=== PATIENT | male | born 1990 | race Two or more races ===

== ENCOUNTER 2018-05-02 09:27 | Emergency (ER) | payer OTHER ==
[~2018-05-02] VITALS: Ht 185.4 cm; Wt 86.2 kg
[2018-05-02] MEDS ORDERED: Lidocaine 1% 10mg/ml/Epi 0.005mg/ml 30ml vial INJ ONE ×2 (09:48→10:00)
[2018-05-02 09:57] VITALS: BP 119/77
[2018-05-02] MEDS ORDERED: Bacitracin Oint UD TOPIC ONE ×2 (10:26→10:30)
[2018-05-02] MEDS ORDERED: Cephalexin 500mg cap ORAL ONE (10:30)
--- NOTE | 2018-05-02 10:33 | Emergency Room Report ---
History of Present Illness General Chief Complaint: Medical Clearance Source: EMS Present Illness HPI Patient is a 27-year-old male who presented by EMS with [employer] after the left hand injury. Patient had recently been arrested. He stated he had a cut his hand on some razor wire from a fence. He reports being right-hand dominant. He denies any numbness. He reports having tetanus vaccine approximate 7 years ago. The patient denies any numbness or foreign body sensation. Allergies: Coded Allergies: No Known Allergies (Unverified , 05/02/18) Patient History Reviewed Nursing Documentation: PMH: Agreed; PSxH: Agreed Nursing Documentation-[facility] Past Medical History: No History, Except For Review of Systems All Other Systems: negative except mentioned in HPI Physical Exam Vital Signs Date Time Temp Pulse Resp B/P (MAP) Pulse Ox O2 Delivery O2 Flow Rate FiO2 05/02/18 09:28 97.6 78 18 119/77 98 Room Air 97.5 General Appearance: well appearing, no apparent distress, alert, GCS 15 Head: normocephalic, atraumatic ENT: hearing grossly normal, normal voice Neck: full range of motion, supple Respiratory: no respiratory distress, speaking full sentences Musculoskeletal: other - left hand with normal opposition, movements of thumb Neurologic: normal inspection, alert, oriented x3, responsive, normal gait Psychiatric: mood/affect normal Skin: no rash Procedures Laceration/Wound Repair Laceration/Wound Repair : Consent: Emergent Wound Location: upper extremity Wound's Depth, Shape: into muscle, linear Betadine Prep?: Yes Anesthesia: Lidocaine w/ Epi Volume Anesthetic (ccs): 4 Wound Debrided: minimal Suture Size/Type: 5:0 Number of Sutures: 10 Layer Closure?: Yes Deep Layer Suture Size/Type: 5:0, 4:0 Number Deep Layer Sutures: 4 Patient Tolerated: Well Complications: None Medical Decision Making ER Course Patient presented for laceration. Differential diagnoses included foreign body , nerve injury, arterial injury among others. The patient's hand wound was sutured. The patient was medically cleared. Patient be discharged to [employer] custody. The patient is advised suture removal in 10-14 days. Last Vital Signs Date Time Temp Pulse Resp B/P (MAP) Pulse Ox O2 Delivery O2 Flow Rate FiO2 05/02/18 09:57 97.5 88 18 119/77 98 Room Air 97.5 Status: improved Disposition: D/C TO [facility] Condition: Stable Referrals: [facility] (PCP) Danny Law MD May 02, 2018 10:33
[2018-05-02] MEDS ORDERED: IBUPROFEN600 MG ORAL (10:36)
[2018-05-02] MEDS ORDERED: CEPHALEXIN500 MG ORAL (10:36)
[2018-05-02 10:46] VITALS: BP 124/82
== END 2018-05-02 10:46 ==
LOC: EDBD 09:27 → EMR 09:56
DX: S61.412A Laceration without foreign body of left hand, initial encounter (principal); W45.8XXA Other foreign body or object entering through skin, initial encounter; Y92.9 Unspecified place or not applicable
CPT/HCPCS: 99283

== ENCOUNTER 2018-05-02 13:04 | Emergency (ER) | payer OTHER ==
[~2018-05-02] VITALS: Ht 177.8 cm; Wt 77.1 kg
[~2018-05-02 13:04] MED LIST: CEPHALEXIN500 MG ORAL; IBUPROFEN600 MG ORAL
[2018-05-02] MEDS ORDERED: Tetanus/Diptheria/Pertussis Vaccine 0.5ml Syr IM ONE ×2 (13:30→13:39)
[2018-05-02 13:43] VITALS: BP 118/70
--- NOTE | 2018-05-02 14:39 | Emergency Room Report ---
History of Present Illness General Chief Complaint: Medical Clearance Source: Patient Present Illness HPI Patient is a 27-year-old male brought in by [employer] for medical clearance. Patient had been recently seen by me and had previous suture. Patient was noted to have some evidence of the laceration that was not noticed on previous exam. The patient was sent for further evaluation and possible suture. Patient was also not noted to be given tetanus vaccine presented and they requested tetanus be given. Allergies: Coded Allergies: No Known Allergies (Unverified , 05/02/18) Patient History Past Medical History: see triage record Reviewed Nursing Documentation: PMH: Agreed; PSxH: Agreed Nursing Documentation-PM Past Medical History: No Stated History Review of Systems All Other Systems: negative except mentioned in HPI Physical Exam Vital Signs Date Time Temp Pulse Resp B/P (MAP) Pulse Ox O2 Delivery O2 Flow Rate FiO2 05/02/18 13:11 97.3 78 20 120/78 98 Room Air 97.3 General Appearance: well appearing, no apparent distress, alert, GCS 15 Head: normocephalic, atraumatic ENT: hearing grossly normal, normal voice Neck: full range of motion, supple Respiratory: no respiratory distress, speaking full sentences Musculoskeletal: no calf tenderness Neurologic: normal gait Psychiatric: mood/affect normal Skin: no rash, laceration - 1 cm finger Procedures Laceration/Wound Repair Laceration/Wound Repair : Consent: Verbal Wound Location: upper extremity Wound's Depth, Shape: superficial Wound Length (cm): 1 Wound Explored: clean Irrigated w/ Saline (ccs): 10 Betadine Prep?: Yes Anesthesia: 1% Lidocaine Volume Anesthetic (ccs): 2 Wound Debrided: minimal Suture Size/Type: 5:0 Number of Sutures: 3 Layer Closure?: No Patient Tolerated: Well Complications: None Medical Decision Making Diagnostic Impression: Primary Impression: Laceration ER Course Patient presented for laceration. Differential diagnoses included foreign body , nerve injury, arterial injury among others. The patient was noted to have a laceration to the small finger on the left hand. This appeared to have been able deep enough to require sutures. The patient was sutured with 3 gut sutures. Patient was given TDap. The patient is medically cleared. The patient was discharged with [facility] Last Vital Signs Date Time Temp Pulse Resp B/P (MAP) Pulse Ox O2 Delivery O2 Flow Rate FiO2 05/02/18 13:43 97.3 84 20 118/70 99 Room Air 97.3 Status: improved Disposition: D/C TO [facility] Condition: Stable Referrals: [facility] (PCP) Departure Forms: [facility] Clearance Patient Instructions: Laceration Care, Adult Danny Law MD May 02, 2018 14:39
== END 2018-05-02 13:40 ==
LOC: EMR 13:28
DX: S61.217A Laceration without foreign body of left little finger without damage to nail, initial encounter (principal); Z23 Encounter for immunization; X58.XXXA Exposure to other specified factors, initial encounter; Y92.9 Unspecified place or not applicable
CPT/HCPCS: 90471; 90715; 99283